=== PATIENT | female | born 1970 | race Caucasian/White ===

== ENCOUNTER 2018-05-29 12:24 | Day surgery (SDC) | payer BC ==
[2018-05-27 14:21] VITALS: BMI 25.3
[2018-05-29] MEDS ORDERED: MIDAZOLAM HCL 2 MG/2 ML SINGLE DOSE VIAL ONE (14:46)
[2018-05-29] MEDS ORDERED: PROPOFOL 20 ML ONE (14:46)
[2018-05-29] MEDS ORDERED: ONDANSETRON 4 MG/2 ML VIAL ONE (14:47)
[2018-05-29] MEDS ORDERED: KETOROLAC TROMETHAMINE 30 MG/1 ML VIAL ONE (14:47)
[2018-05-29] MEDS ORDERED: DEXAMETHASONE SOD PHOSPHATE 4 MG/1 ML VIAL ONE (14:47)
[2018-05-29] MEDS ORDERED: ceFAZolin SODIUM 1 GM VIAL ONE (14:47)
[2018-05-29] MEDS ORDERED: GUM MASTIC/STORAX/MSAL/ALCOHOL 1 DRP DROPSBTL MC ONE (15:33)
[2018-05-29] MEDS ORDERED: BUPIVACAINE HCL/PF 0.25% (2.5MG/ML) 10 ML VIAL IJ ONE (15:41)
[2018-05-29] MEDS ORDERED: ONDANSETRON 4 MG/2 ML VIAL IVPUSH PRN (15:46)
[2018-05-29] MEDS ORDERED: oxyCODONE HCL 5 MG TABLET PO PRN (15:46)
[2018-05-29] MEDS ORDERED: PROMETHAZINE HCL 25 MG/1 ML VIAL IVPUSH PRN (15:46)
[2018-05-29] MEDS ORDERED: LACTATED RINGERS SOLUTION 1,000 ML IV SCH (16:00)
[2018-05-29 16:48] VITALS: TEMP 98.1
[2018-05-29 16:59] VITALS: BP 138/85; PULSE 67
--- NOTE | 2018-05-30 08:55 | OP ---
DATE OF OPERATION: 05/29/2018 PREOPERATIVE DIAGNOSIS: Right dorsal wrist mass. POSTOPERATIVE DIAGNOSIS: Right dorsal wrist mass. OPERATIVE PROCEDURE: Right dorsal wrist mass excision. SURGEON: Aries Monson MD [employer] HEATER: PAM Huddleston ANESTHESIA: General. COMPLICATIONS: None. ESTIMATED BLOOD LOSS: Minimal. INDICATION FOR PROCEDURE: The patient is a 47-year-old female with the above finding indicated for operative treatment. Risks, benefits, alternatives were discussed with the patient at length. Proper informed consent was obtained. DESCRIPTION OF PROCEDURE: After proper identification of the patient, correct operative site, patient brought to the operating room, placed supine on the operating table with all prominences well padded. General anesthesia was given. Timeout procedure was performed. Right upper extremity was prepped and draped in usual sterile fashion. Esmarch bandage used to exsanguinate right upper extremity. Tourniquet was inflated to 250 mmHg. Longitudinal incision was made over the dorsal aspect of the wrist where the mass was present, which measured approximately 3 cm x 3 cm. Skin was incised, and blunt and sharp dissection was performed through the soft tissue. The mass was found to be a well-circumscribed mass superficial to the extensor tendons and retinaculum but deep to the subcutaneous tissue. It was not significantly adherent to any tissue. It was resected free of the adjacent soft tissue and sent for pathological evaluation. This was a solid mass. No further mass was present. Wound was irrigated and repaired with 4-0 Vicryl and 4-0 Monocryl sutures. Steri- Strips and a sterile dressings were applied. Patient was reversed from anesthesia and brought to the recovery room in stable condition. She tolerated the procedure well. ARIES MONSON M.D. RICCI/[id number] MTDD
--- NOTE | 2018-06-10 09:18 | PATH ---
Surgical Pathology Report Patient Name: PACO GONZALEZ [facility]. Rec. #: [id number] /Age/Gender: 1970 (Age: 47) / F Account: [id number] Location: [facility], 1928–1983 AMBULATORY Taken: 05/29/2018 Received: 05/29/2018 Reported: 06/10/2018 Physicians: Aries Ventura M.D. Specimen(s) Received MASS OF RIGHT WRIST Clinical History Right wrist mass Final Diagnosis WRIST MASS, RIGHT, EXCISION: MYXOFIBROSARCOMA, HIGH GRADE. TUMOR MEASURES 3.0 x 2.3 x 2.0 CM, GROSS MEASUREMENT. NO LYMPHOVASCULAR INVASION IDENTIFIED. SURGICAL MARGINS ARE UNINVOLVED; SHELLED OUT WITH NARROW MARGINS (<1 MM). Comment: The tumor appears well-circumscribed by a thin fibrous pseudocapsule and shows a predominantly, >90%, myxoid component. The tumor is composed of spindle and pleomorphic cells with scant eosinophilic cytoplasm and hyperchromatic nuclei. A rich curvilinear vascular network is seen throughout. Focal areas of more solid (non-myxoid) growth are present. No significant necrosis identified. Based on these latter areas and the presence of marked nuclear pleomorphism, the lesion is best classified as high grade. Immunohistochemical stains performed at [place], [place] are positive for vimentin, and CD34; while negative for S100, AE1/3 and desmin. CD163 was utilized to evaluate this case. This case was sent to Dr. Stefanie Khanna from [facility], [place], [place] (#: [id number]); the diagnosis above reflects her opinion. Office of Dr. Ventura informed that significant findings will be faxed ([facility] [place]). Electronically Signed Odessa Hussein M.D. Gross Description Received in formalin labeled "right wrist mass," is a 3.0 x 2.3 x 2.0 cm hutton, ovoid, intact, encapsulated mass. The outer surface is hutton page and smooth. Sectioning reveals homogeneous hutton, solid parenchyma. Factory Hand sections are submitted in 4 cassettes. DL/05/30/2018 saudi05/30/2018
== END 2018-05-29 16:59 | disposition home or self-care (01) ==
LOC: FASU 12:24
PROVIDERS: ATTEND Orthopaedic Surgery Hand Surgery
PROC: 0JBG0ZZ Excision of Right Lower Arm Subcutaneous Tissue and Fascia, Open Approach (ICD-10-PCS; principal; 2018-05-29 16:00)
DX: D21.11 Benign neoplasm of connective and other soft tissue of right upper limb, including shoulder (principal)
CPT/HCPCS: 84703; 88307-TC; 94760